=== PATIENT | female | born 1960 ===

== ENCOUNTER 2024-01-16 08:37 | Outpatient (CLI) | payer OTHER ==
[~2024-01-16 08:37] MED LIST: KLONOPIN0.25 MG/TA; PAXIL20 MG
== END 2024-01-16 08:41 | disposition home or self-care (01) ==
LOC: SONOGRAMA 08:37
PROVIDERS: ATTEND Pathology Anatomic Pathology & Clinical Pathology
DX: D34 Benign neoplasm of thyroid gland (principal); E07.89 Other specified disorders of thyroid; E04.1 Nontoxic single thyroid nodule